=== PATIENT | male | born 2000 | race Caucasian/White ===

== ENCOUNTER 2020-10-23 20:52 | Inpatient (IN) | payer MEDICAID, OTHER ==
[~2020-10-23] VITALS: Ht 162.6 cm; Wt 48.8 kg
[2020-10-23] MEDS ORDERED: CLOTRIMAZOLE 1% 15 GM CREAM TP ONE (22:45)
[2020-10-23 22:56] LABS: AMPHET/METH SCREEN,URINE NEGATIVE (NEGATIVE); BARBITURATE SCREEN, URINE NEGATIVE (NEGATIVE); BENZODIAZEPINES SCREEN,URINE NEGATIVE (NEGATIVE); CANNABINOID SCREEN,URINE NEGATIVE (NEGATIVE); COCAINE SCREEN,URINE NEGATIVE (NEGATIVE); METHADONE SCREEN, URINE NEGATIVE (NEGATIVE); OPIATE SCREEN,URINE NEGATIVE (NEGATIVE); PHENCYCLIDINE SCREEN,URINE NEGATIVE (NEGATIVE)
[2020-10-23 23:02] LABS: BASOPHILS % (AUTO) 0.9 % (0.0-2.0); EOSINOPHILS % (AUTO) 8.6 % (1.0-6.0); HEMATOCRIT 49.2 % (41-53); HEMOGLOBIN 16.1 g/dL (13.5-17.5); LYMPHOCYTES # (AUTO) 2.6 K/uL (1.0-4.8); LYMPHOCYTES % (AUTO) 24.7 % (22.0-44.0); MEAN CORPUSCULAR HGB CONC 32.8 G/dL (31.0-37.0); MEAN CORPUSCULAR VOLUME 88 fL (80-100); MONOCYTES # (AUTO) 0.6 K/uL (0.1-1.0); MONOCYTES % (AUTO) 5.5 % (2.0-9.0); NEUTROPHILS # (AUTO) 6.3 K/uL (1.8-7.7); NEUTROPHILS % (AUTO) 60.3 % (40.0-70.0); PLATELET COUNT (AUTO) 176 K/uL (150-450); RED BLOOD CELL COUNT(AUTO) 5.57 MIL/uL (4.50-5.90)
[2020-10-23 23:10] LABS: ANION GAP 7 mmol/L (8-16); CALCIUM, TOTAL 9.3 mg/dL (8.8-10.5); CARBON DIOXIDE 29 mmol/L (22-29); CHLORIDE 105 mmol/L (98-107); CREATININE 1.02 mg/dL (0.60-1.30); GLOMERULAR FILTR. RATE CALC > 60 mL/min (>60); GLUCOSE,RANDOM 87 mg/dL (70-110); POTASSIUM 4.4 mmol/L (3.5-5.1); SODIUM SERUM 141 mmol/L (136-145); UREA NITROGEN, BLOOD 16 mg/dL (7-18)
[2020-10-23 23:16] LABS: ALANINE AMINOTRANSFERASE 12 U/L (12-78); ALBUMIN 4.5 g/dL (3.4-5.0); ALKALINE PHOSPHATASE 99 U/L (46-116); ASPARTATE AMINOTRANSFERASE 16 U/L (15-37); BILIRUBIN,TOTAL 0.8 mg/dL (0.1-1.0)
[2020-10-23 23:37] LABS: COVID AG,FIA SOURCE NASAL SWAB
[2020-10-24] MEDS ORDERED: ZOLPIDEM TARTRATE 10 MG TABLET PO PRN (01:15)
[2020-10-24] MEDS ORDERED: HALOPERIDOL 5 MG TABLET PO PRN (01:15)
[2020-10-24] MEDS ORDERED: LORazepam 2 MG TABLET PO PRN (01:15)
[2020-10-24 03:41] VITALS: BP 110/68
[2020-10-24 08:04] VITALS: BP 139/69
[2020-10-24] MEDS: CLOTRIMAZOLE 1% 15 GM CREAM TP SCH ×2 (10:03→17:18)
[2020-10-24] MEDS ORDERED: SERTRALINE HCL 100 MG TABLET PO ONE (10:30)
[2020-10-24] MEDS ORDERED: ONDANSETRON HCL 4 MG TABLET PO PRN (13:00)
[2020-10-24 16:06] VITALS: BP 113/84
[2020-10-24] MEDS: QUEtiapine FUMARATE 25 MG TABLET PO SCH (20:30)
[2020-10-24] MEDS: MIRTAZAPINE 15 MG TABLET PO SCH (20:30)
[2020-10-25 01:13] VITALS: BP 103/62
[2020-10-25 07:38] LABS: CHOL/HDL RATIO 2.9 (4.2-7.3); FREE T4 (FREE THYROXINE) 1.06 ng/dL (0.76-1.46); THYROID STIMULATING HORMONE 0.62 uIU/mL (0.36-3.74)
[2020-10-25 08:15] VITALS: BP 116/77
[2020-10-25] MEDS: SERTRALINE HCL 100 MG TABLET PO SCH (08:30)
[2020-10-25] MEDS: THIAMINE 100 MG TABLET PO SCH (08:30)
[2020-10-25] MEDS: CLOTRIMAZOLE 1% 15 GM CREAM TP SCH ×2 (08:30→17:00)
[2020-10-25] MEDS ORDERED: SERTRALINE HCL 100 MG TABLET PO SCH (09:00)
[2020-10-25 16:37] VITALS: BP 104/68
[2020-10-25] MEDS: MIRTAZAPINE 15 MG TABLET PO SCH (20:19)
[2020-10-25] MEDS: QUEtiapine FUMARATE 25 MG TABLET PO SCH (20:19)
[2020-10-26 01:09] VITALS: BP 105/59
[2020-10-26 08:05] VITALS: BP 116/88
[2020-10-26] MEDS: THIAMINE 100 MG TABLET PO SCH (08:46)
[2020-10-26] MEDS: SERTRALINE HCL 100 MG TABLET PO SCH (08:46)
[2020-10-26] MEDS: CLOTRIMAZOLE 1% 15 GM CREAM TP SCH ×2 (08:46→16:22)
[2020-10-26 16:09] VITALS: BP 143/85
[2020-10-26] MEDS: QUEtiapine FUMARATE 25 MG TABLET PO SCH (20:46)
[2020-10-26] MEDS: MIRTAZAPINE 15 MG TABLET PO SCH (20:46)
[2020-10-27 05:45] VITALS: BP 104/52
[2020-10-27 08:17] VITALS: BP 110/62
[2020-10-27] MEDS: CLOTRIMAZOLE 1% 15 GM CREAM TP SCH ×2 (08:38→16:50)
[2020-10-27] MEDS: THIAMINE 100 MG TABLET PO SCH (08:39)
[2020-10-27] MEDS: SERTRALINE HCL 100 MG TABLET PO SCH (08:39)
[2020-10-27] MEDS ORDERED: ARIPiprazole LAUROXIL ER SUSPENSION 882 MG/3.2 ML SYRINGE IM ONE (16:00)
[2020-10-27 16:03] VITALS: BP 109/59
[2020-10-27] MEDS: MIRTAZAPINE 15 MG TABLET PO SCH (20:34)
[2020-10-27] MEDS: QUEtiapine FUMARATE 100 MG TABLET PO SCH (20:34)
[2020-10-28 00:08] VITALS: BP 103/62
[2020-10-28 08:02] VITALS: BP 99/64
[2020-10-28] MEDS: THIAMINE 100 MG TABLET PO SCH (08:13)
[2020-10-28] MEDS: SERTRALINE HCL 100 MG TABLET PO SCH (08:13)
[2020-10-28] MEDS: CLOTRIMAZOLE 1% 15 GM CREAM TP SCH ×2 (08:14→16:40)
[2020-10-28 16:14] VITALS: BP 108/81
[2020-10-28] MEDS: QUEtiapine FUMARATE 100 MG TABLET PO SCH (20:01)
[2020-10-28] MEDS: MIRTAZAPINE 15 MG TABLET PO SCH (20:01)
[2020-10-29 00:04] VITALS: BP 104/62
[2020-10-29 07:14] LABS: COVID AG,FIA SOURCE NASOPHARYNGEAL
[2020-10-29] MEDS: THIAMINE 100 MG TABLET PO SCH (08:04)
[2020-10-29] MEDS: SERTRALINE HCL 100 MG TABLET PO SCH (08:04)
[2020-10-29] MEDS: CLOTRIMAZOLE 1% 15 GM CREAM TP SCH ×2 (08:05→16:48)
[2020-10-29 08:12] VITALS: BP 113/60
[2020-10-29 16:02] VITALS: BP 117/60
[2020-10-29] MEDS: QUEtiapine FUMARATE 100 MG TABLET PO SCH (20:44)
[2020-10-29] MEDS: MIRTAZAPINE 15 MG TABLET PO SCH (20:44)
[2020-10-30 00:04] VITALS: BP 110/70
[2020-10-30 08:10] VITALS: BP 106/63
[2020-10-30] MEDS: THIAMINE 100 MG TABLET PO SCH (08:12)
[2020-10-30] MEDS: SERTRALINE HCL 100 MG TABLET PO SCH (08:12)
[2020-10-30] MEDS: CLOTRIMAZOLE 1% 15 GM CREAM TP SCH ×2 (08:13→17:45)
[2020-10-30 16:00] VITALS: BP 112/52
[2020-10-30] MEDS: MIRTAZAPINE 15 MG TABLET PO SCH (20:08)
[2020-10-30] MEDS: QUEtiapine FUMARATE 100 MG TABLET PO SCH (20:08)
[2020-10-31 00:35] VITALS: BP 104/62
[2020-10-31 08:02] VITALS: BP 116/56
[2020-10-31] MEDS: SERTRALINE HCL 100 MG TABLET PO SCH (08:24)
[2020-10-31] MEDS: THIAMINE 100 MG TABLET PO SCH (08:24)
[2020-10-31] MEDS: CLOTRIMAZOLE 1% 15 GM CREAM TP SCH ×2 (08:26→16:20)
[2020-10-31] MEDS: QUEtiapine FUMARATE 25 MG TABLET PO SCH (09:42)
[2020-10-31 16:15] VITALS: BP 110/68
[2020-10-31] MEDS: MIRTAZAPINE 15 MG TABLET PO SCH (20:14)
[2020-10-31] MEDS: QUEtiapine FUMARATE 100 MG TABLET PO SCH (20:14)
[2020-11-01 05:54] VITALS: BP 114/64
[2020-11-01 08:16] VITALS: BP 118/62
[2020-11-01] MEDS: SERTRALINE HCL 100 MG TABLET PO SCH (08:28)
[2020-11-01] MEDS: QUEtiapine FUMARATE 25 MG TABLET PO SCH (08:28)
[2020-11-01] MEDS: THIAMINE 100 MG TABLET PO SCH (08:28)
[2020-11-01] MEDS: CLOTRIMAZOLE 1% 15 GM CREAM TP SCH ×2 (08:33→16:13)
[2020-11-01 16:12] VITALS: BP 118/61
[2020-11-01] MEDS: MIRTAZAPINE 15 MG TABLET PO SCH (20:09)
[2020-11-01] MEDS: QUEtiapine FUMARATE 100 MG TABLET PO SCH (20:10)
[2020-11-02 00:10] VITALS: BP 122/74
[2020-11-02 08:31] VITALS: BP 100/72
[2020-11-02] MEDS: SULFAMETHOX/TRIMETH DS 800-160 MG/TABLET PO SCH ×2 (08:44→16:57)
[2020-11-02] MEDS: QUEtiapine FUMARATE 25 MG TABLET PO SCH (08:44)
[2020-11-02] MEDS: SERTRALINE HCL 100 MG TABLET PO SCH (08:44)
[2020-11-02] MEDS: THIAMINE 100 MG TABLET PO SCH (08:44)
[2020-11-02] MEDS: CEPHALEXIN MONOHYDRATE 500 MG CAPSULE PO SCH ×3 (08:44→16:57)
[2020-11-02] MEDS: CLOTRIMAZOLE 1% 15 GM CREAM TP SCH ×2 (09:30→16:56)
[2020-11-02] MEDS: BACITRACIN 28 GM OINTMENT TP SCH (09:30)
[2020-11-02 16:04] VITALS: BP 116/65
[2020-11-02] MEDS: MIRTAZAPINE 15 MG TABLET PO SCH (20:04)
[2020-11-02] MEDS: QUEtiapine FUMARATE 100 MG TABLET PO SCH (20:04)
[2020-11-03 06:19] VITALS: BP 104/62
[2020-11-03] MEDS: THIAMINE 100 MG TABLET PO SCH (07:58)
[2020-11-03] MEDS: CEPHALEXIN MONOHYDRATE 500 MG CAPSULE PO SCH ×3 (07:58→16:10)
[2020-11-03] MEDS: SULFAMETHOX/TRIMETH DS 800-160 MG/TABLET PO SCH ×2 (07:58→16:09)
[2020-11-03] MEDS: SERTRALINE HCL 100 MG TABLET PO SCH (07:58)
[2020-11-03] MEDS: BACITRACIN 28 GM OINTMENT TP SCH (07:59)
[2020-11-03] MEDS: QUEtiapine FUMARATE 25 MG TABLET PO SCH (07:59)
[2020-11-03] MEDS: CLOTRIMAZOLE 1% 15 GM CREAM TP SCH ×2 (08:00→16:14)
[2020-11-03 08:09] VITALS: BP 113/60
[2020-11-03 16:14] VITALS: BP 117/62
[2020-11-03] MEDS: MIRTAZAPINE 15 MG TABLET PO SCH (20:07)
[2020-11-03] MEDS: QUEtiapine FUMARATE 100 MG TABLET PO SCH (20:07)
[2020-11-04 00:03] VITALS: BP 112/71
[2020-11-04 08:03] VITALS: BP 113/60
[2020-11-04] MEDS: BACITRACIN 28 GM OINTMENT TP SCH (09:09)
[2020-11-04] MEDS: CEPHALEXIN MONOHYDRATE 500 MG CAPSULE PO SCH ×2 (09:09→12:10)
[2020-11-04] MEDS: QUEtiapine FUMARATE 25 MG TABLET PO SCH (09:09)
[2020-11-04] MEDS: SULFAMETHOX/TRIMETH DS 800-160 MG/TABLET PO SCH (09:09)
[2020-11-04] MEDS: THIAMINE 100 MG TABLET PO SCH (09:09)
[2020-11-04] MEDS: CLOTRIMAZOLE 1% 15 GM CREAM TP SCH (09:09)
[2020-11-04] MEDS: SERTRALINE HCL 100 MG TABLET PO SCH (09:09)
[2020-11-04] MEDS ORDERED: QUET25TA PO (11:42)
[2020-11-04] MEDS ORDERED: SERT-162 PO (11:42)
[2020-11-04] MEDS ORDERED: QUET100T PO (11:42)
[2020-11-04] MEDS ORDERED: MIRT-89 PO (11:42)
[2020-11-04] MEDS ORDERED: CEPH500C3 PO (11:43)
[2020-11-04] MEDS ORDERED: BACTDSB PO (11:43)
== END 2020-11-04 14:15 | disposition home or self-care (01) | DRG 750 ==
LOC: EMS 20:52 → B2S 10-24 01:05
PROVIDERS: ADMIT Psychiatry & Neurology Child & Adolescent Psychiatry; ATTEND Psychiatry & Neurology Child & Adolescent Psychiatry
DX: F25.9 Schizoaffective disorder, unspecified (principal); E46 Unspecified protein-calorie malnutrition; F32.9 Major depressive disorder, single episode, unspecified; J45.909 Unspecified asthma, uncomplicated; B35.1 Tinea unguium; K59.00 Constipation, unspecified; Z20.822 Contact with and (suspected) exposure to COVID-19; Z68.1 Body mass index [BMI] 19.9 or less, adult
CPT/HCPCS: 80053; 80061; 84439; 84443; 85025; 99285; A9575; G0480; Q0162